=== PATIENT | female | born 1960 | race Caucasian/White ===

== ENCOUNTER 2022-01-17 08:18 | Outpatient (CLI) | payer MEDICARE | END 2022-01-17 08:19 | disposition home or self-care (01) | LOC: CSHULT 08:18 | PROVIDERS: ATTEND Student in an Organized Health Care Education/Training Program | DX: R10.11 Right upper quadrant pain (principal); Z90.49 Acquired absence of other specified parts of digestive tract; K76.0 Fatty (change of) liver, not elsewhere classified | CPT/HCPCS: 76705 ==